=== PATIENT | female | born 1995 | race Caucasian/White ===

== ENCOUNTER 2021-11-30 12:20 | Emergency (ER) | payer OTHER ==
[~2021-11-30 12:20] MED LIST: PRENATAL VITAM1 EAC8 PO; ZANTAC150 MG PO
[2021-11-30 14:56] LABS: HEMOGLOBIN 13.3 gm/dl (12.3-15.3); RED BLOOD COUNT 5.01 M/UL (4.00-5.10); WHITE BLOOD COUNT 8.1 K/UL (4.5-11.0)
[2021-11-30 15:07] LABS: BUN/CREATININE RATIO 15 (0-10)
== END 2021-11-30 20:40 | disposition home or self-care (01) ==
LOC: ER1 12:20
PROVIDERS: Emergency Medicine
DX: R07.9 Chest pain, unspecified (principal); R11.0 Nausea; Z86.16 Personal history of COVID-19; Z88.1 Allergy status to other antibiotic agents
CPT/HCPCS: 71045; 80053; 82550; 82553; 83874; 84484; 84703; 85025; 85379; 93005; 99285